=== PATIENT | female | born 1955 | race Hispanic/Latino ===

== ENCOUNTER → 2023-01-19 | Outpatient (CLI) | payer OTHER ==
[~2023-01-19] MED LIST: ASPI-1012 PO; FLEC50TA3 PO; LEVO500T2 PO; METO-391 PO
== END | disposition home or self-care (01) ==
LOC: SHCH 12:25
PROVIDERS: ATTEND Student in an Organized Health Care Education/Training Program
DX: I35.1 Nonrheumatic aortic (valve) insufficiency (principal); I11.9 Hypertensive heart disease without heart failure; I48.0 Paroxysmal atrial fibrillation; E78.5 Hyperlipidemia, unspecified
CPT/HCPCS: 93306

== ENCOUNTER → 2023-01-31 | Outpatient (CLI) | payer OTHER ==
[2023-01-31 12:45] LABS: CREATININE 0.8 mg/dL (0.5-1.5)
[2023-01-31 12:48] LABS: HEMOGLOBIN A1C 5.2 % (4.0-6.0)
== END | disposition home or self-care (01) ==
LOC: LAB 10:25
PROVIDERS: ATTEND Student in an Organized Health Care Education/Training Program
DX: I10 Essential (primary) hypertension (principal); Z79.899 Other long term (current) drug therapy
CPT/HCPCS: 36415; 80048; 80061; 83036

== ENCOUNTER → 2023-03-10 | Outpatient (CLI) | payer OTHER | END | disposition home or self-care (01) | LOC: SHCH 10:55 | PROVIDERS: ATTEND Student in an Organized Health Care Education/Training Program | DX: R60.0 Localized edema (principal); I87.2 Venous insufficiency (chronic) (peripheral) | CPT/HCPCS: 93970 ==

== ENCOUNTER → 2025-03-25 | Outpatient (CLI) | payer OTHER ==
[2025-03-25] MEDS: REGADENOSON 0.4 MG/5 ML PF SYG IVP ONE (15:14)
--- NOTE | 2025-04-01 10:49 | HMCSR ---
APPROVED REPORT Height: 5 ft 0in Weight: 174 lbs TEST INDICATIONS Chest Pain The imaging protocol used to acquire images was Rest Tc-99m/stress Tc-99m 1 day Consent: The procedure was explained and understood by the patient. Informerd consent was witnessed Komal Yadav RN First, low dose rest was performed then high dose stress. RESTING DATA: The resting ekg shows: Atrial Fibrillation Rest SPECT myocardial perfusion imaging was performed in supine position 45 minutes following the int ravenous injection of 10.8 mCi of Tc-99 Sestamibi. Time of rest injection: 08:48: Date: 03/25/2025 Time of rest imagin:33: Date: 03/25/2025 PHARMACOLOGIC STRESS: Pharmacologic stress test was performed by injecting regadenoson 0.4 mg IV push followed by the intra venous injection of 33.1 mCi of Tc-99 Sestamibi. Time of stress injection: 10:01: Date: 03/25/2025 Time of stress imagin:16: Date: 03/25/2025 Heart Rate at time of stress injection: 75 bpm. Gated Stress SPECT was performed 75 minutes after stress injection. The images were gated to evaluate regional wall motion and calculate left ventricular ejection fracti on. STRESS DETAILS Reason for Termination: Infusion complete Stress Symptoms: Dyspnea, headache Max HR Achieved: 83 bpm % of APMHR Achieved: 56 Max Blood Pressure: 160/82 mmHg Stress ECG: Atrial Fibrillation Study quality was fair. Lung uptake was Normal. Artifact: No artifact LEFT VENTRICLE The left ventricular ejection fraction was calculated to be >65%.TID = 0.74. LV PERFUSION Stress Perfusion Normal IMPRESSION Normal pharmacologic nuclear stress test. Conclusion Normal [id number] stress test with an LVEF >65% and a TID within normal limits. No reversible ischemia.
== END | disposition home or self-care (01) ==
LOC: SHCH 08:00
PROVIDERS: ATTEND Student in an Organized Health Care Education/Training Program
DX: R07.9 Chest pain, unspecified (principal); R06.00 Dyspnea, unspecified; R51.9 Headache, unspecified
CPT/HCPCS: 78452; 93017; J2785; A9500 ×2